=== PATIENT | male | born 1960 ===

== ENCOUNTER 2022-06-03 17:33 | Emergency (ER) | payer SELFPAY ==
[2022-06-03 17:52] VITALS: BP 136/82
[2022-06-03] MEDS ORDERED: LIDOCAINE (1%) 10 MG/1 ML VIAL 20 ML MDV INFILTRATI ONE (17:56)
[2022-06-03] MEDS ORDERED: TETANUS,DIPH,PERTUSS(ACELL) VACCINE 0.5 ML SYRINGE IM ONE (17:56)
[2022-06-03] MEDS ORDERED: ACETAMINOPHEN 325 MG TAB PO ONE (17:56)
[2022-06-03] MEDS ORDERED: SODIUM CHLORIDE 0.9% IRR 500 ML BOTTLE IR ONE (17:56)
--- NOTE | 2022-06-03 17:56 | Event Note ---
ED Screening Note ED Screening Note: sp fall from ladder cut the back of the right leg non arterial leg warm compartments soft dp pt plus 2 This initial assessment/diagnostic orders/clinical plan/treatment(s) is/are subject to change based on patients health status, clinical progression and re- assessment by fellow clinical providers in the ED. Further treatment and workup at subsequent clinical providers discretion. Patient/guardian urged not to elope from the ED as their condition may be serious if not clinically assessed and managed. Initial orders include: will need tdap lac repair
== END 2022-06-03 18:00 | disposition left against medical advice (07) ==
LOC: ED 17:33
DX: S81.811A Laceration without foreign body, right lower leg, initial encounter (principal); Z53.21 Procedure and treatment not carried out due to patient leaving prior to being seen by health care provider; W45.8XXA Other foreign body or object entering through skin, initial encounter; Y93.89 Activity, other specified; Y92.89 Other specified places as the place of occurrence of the external cause; Y99.8 Other external cause status